=== PATIENT | female | born 1970 | race Caucasian/White ===

== ENCOUNTER 2020-04-09 15:57 | Emergency (ER) | payer BC, SELFPAY ==
[2020-04-09 16:15] VITALS: BP 186/93; PULSE 77; RESP 16; TEMP 36.3; O2SAT 95; BMI 31.9
[2020-04-09 16:17] VITALS: BP 186/93; PULSE 77; RESP 16; TEMP 36.3; O2SAT 95; BMI 31.9
--- NOTE | 2020-04-09 16:20 | HMH.EDUTC ---
[facility] [place] Impression: Elevated blood pressure reading Fatigue Qualifiers: Fatigue type: unspecified Qualified Code(s): R53.83 - Other fatigue Disposition: Home, Self-Care Condition on Discharge: Good Instructions: Essential Hypertension Additional Instructions: Drink plenty of fluids. Take tylenol or ibuprofen for pain. Take the medications as directed. Follow up with your regular doctor. GO TO THE ER FOR ANY WORSENING SYMPTOMS Prescriptions: lisinopriL [Lisinopril 10mg Tab] 10 mg PO DAILY #30 tab Transmission Status: Received by [facility] Referrals: Loan Epstein [Primary Care Provider] - Time of Disposition: 17:34 Medical Decision Making - Medical Records Medical records reviewed: No: I reviewed the patient's medical records. - Elbert Inquiry Pt receiving controlled substance: No Vital Signs: 04/09/20 16:15 04/09/20 16:17 04/09/20 17:29 Temperature 97.4 F L 97.4 F L Temperature Source Tympanic Tympanic Pulse Rate Pulse Rate [Right] 77 77 Respiratory Rate 16 16 Blood Pressure Blood Pressure [Right Arm] 186/93 H 186/93 H 185/81 H Blood Pressure Mean [Right Arm] 124 124 115 Blood Pressure Source Blood Pressure Source [Right Arm] Automatic Cuff Automatic Cuff Automatic Cuff Blood Pressure Position [Right Arm] Sitting Sitting Sitting 02 Sat by Pulse Oximetry 95 95 Oxygen Delivery Method Room Air Room Air 04/09/20 17:40 Temperature 98 F Temperature Source Pulse Rate 77 Pulse Rate [Right] Respiratory Rate 16 Blood Pressure 180/79 H Blood Pressure [Right Arm] Blood Pressure Mean [Right Arm] Blood Pressure Source Automatic Cuff Blood Pressure Source [Right Arm] Blood Pressure Position [Right Arm] 02 Sat by Pulse Oximetry Oxygen Delivery Method - Lab Data Lab Results 04/09/20 16:55: WBC 10.2, RBC 5.10, Hgb 14.8, Hct 43.5, MCV 85.3, MCH 29.0, MCHC 34.0, RDW 13.4, Plt Count 334, MPV 7.3 L, Neut % (Auto) 47.8, Lymph % (Auto) 39.9, [place] % (Auto) 5.4, Eos % (Auto) 5.7, Baso % (Auto) 1.2, Neut # (Auto) 4.9, Lymph # (Auto) 4.1, [place] # (Auto) 0.6, Eos # (Auto) 0.6 H, Baso # (Auto) 0.1 04/09/20 16:55: Sodium 142, Potassium 3.5, Chloride 105, Carbon Dioxide 29, Anion Gap 11.5, BUN 7, Creatinine 0.60, Estimated Creat Clear 131, Estimated GFR 106, Est GFR ( Amer) 128, Glucose 113 H, Calcium 9.8, Total Bilirubin 0.5, AST 55 H, ALT 64, Alkaline Phosphatase 92, Total Protein 9.0 H, Albumin 5.0, Globulin 4.0 H, Albumin/Globulin Ratio 1.3, TSH 3.11 Result diagrams: 04/09/20 16:55 04/09/20 16:55 [facility] [place] General Stated complaint: Blood pressure is high, leg weak, REYNOSO Time Seen by Provider: 04/09/20 16:20 - History of Present Illness Provider Complaint: She states that over the past week or so she has been having headaches more often than her usual pattern. She has been under more stress than her normal. She denies that her headaches are severe, but they do bother her. She denies any chest pain. - Related Data Previous Rx's Medication Instructions Recorded Ondansetron [Zofran 4mg ODT] 4 mg PO TIDP PRN #10 tab.rapdis 05/12/18 Oxycodone HCl/Acetaminophen 1 tab PO Q6HP PRN #10 tab 05/12/18 [Percocet 5/325mg tablet] Tamsulosin HCl [Flomax 0.4mg 0.4 mg PO HS #10 cap.er.24h 05/12/18 capsule] lisinopriL [Lisinopril 10mg Tab] 10 mg PO DAILY #30 tab 04/09/20 Allergies Allergy/AdvReac Type Severity Reaction Status Date / Time No Known Drug Allergies Allergy Unknown Verified 04/09/20 16:00 [NKDA] [facility] History - Hepatitis A Screen Attestation statement:: This patient has been screened for Hepatitis A risk factors. I have reviewed the patient's past medical history: Yes Medical History: Reports:: Hyperlipidemia, Hypertension Other Medical History: Reports: Arthritis Other Surgeries: Yes: Cholecystectomy, Hysterectomy-Total - Social History Smoking Status: Never smoker Alcohol Intake:
--- NOTE | 2020-04-09 16:40 | PC.NURSE ---
FS 238 performed by Capri ESCOBEDO
--- NOTE | 2020-04-09 16:58 | ECG_ITS ---
APPROVED REPORT Exam: Resting ECG HR:68 bpm ECG Measurements Heart Rate 68 AXES SC 134 P 12 QRSd 70 QRS 24 QT 414 T 16 QTc 440 Conclusion Normal sinus rhythm with sinus arrhythmia Low voltage QRS Poor r wave progression Abnormal ECG Electronically signed by : Loi Whitney, 04/10/2020 06:29:35
[2020-04-09 17:08] LABS: Basophils # 0.1 K/mm3 (0-0.2); Basophils % 1.2 % (0.1-2.0); Chloride 105 mmol/L (98-107); Eosinophils # 0.6 K/mm3 (0.0-0.4); Eosinophils % 5.7 % (0.1-12.0); Hematocrit 43.5 % (37.0-47.0); Hemoglobin 14.8 g/dL (12.2-16.2); Lymphocytes # 4.1 K/mm3 (0.7-4.5); Lymphocytes % 39.9 % (10-50); Mean Corpuscular Volume 85.3 fl (81-99); Mean Platelet Volume 7.3 fl (7.4-10.4); Monocytes # 0.6 K/mm3 (0.1-1.0); Monocytes % 5.4 % (1.7-9.3); Neutrophils # 4.9 K/mm3 (1.8-7.8); Neutrophils % 47.8 % (37.0-80.0); Platelet Count 334 K/mm3 (142-424); Potassium 3.5 mmoL/L (3.5-5.1); Red Cell Distribution Width 13.4 % (11.5-17.5); Sodium 142 mmol/L (136-145); White Blood Count 10.2 K/mm3 (4.8-10.8)
[2020-04-09 17:10] LABS: Alanine Aminotransferase 64 U/L (12-78); Aspartate Amino Transferase 55 U/L (14-36); Blood Urea Nitrogen 7 mg/dl (7-17); Creatinine Clearance Estimated 131 mL/min (50-200); Estimated Glomerular Filt Rate 106 ml/min (>60); GFR (African American) 128 ML/MIN (>60)
[2020-04-09 17:11] LABS: Albumin/Globulin Ratio 1.3 (1.1-1.8); Alkaline Phosphatase 92 U/L (38-126); Anion Gap 11.5 mEq/L (5-15); Bilirubin,Total 0.5 mg/dl (0.2-1.3); Calcium 9.8 mg/dl (8.4-10.2); Carbon Dioxide 29 mmol/L (22.0-30.0); Glucose 113 mg/dl (74-100)
[2020-04-09 17:29] VITALS: BP 185/81
[2020-04-09 17:40] VITALS: BP 180/79; PULSE 77; RESP 16; TEMP 36.6
[2020-04-09 17:42] LABS: Thyroid Stimulating Hormone 3.11 uIU/mL (0.465-4.68)
== END 2020-04-09 17:43 | disposition home or self-care (01) ==
PROVIDERS: Emergency Provider Nurse Practitioner Family; PCP Physician Assistant
DX: R03.0 Elevated blood-pressure reading, without diagnosis of hypertension (principal); R53.83 Other fatigue
CPT/HCPCS: 80053; 84443; 85025; 93005; 93041; 99202; G0463

== ENCOUNTER 2020-05-20 12:42 | Emergency (ER) | payer BC, SELFPAY ==
[2020-05-20] VITALS (7 sets, daily range): BP systolic 145–157; BP diastolic 79–97; PULSE 65–95; RESP 13–23; TEMP 37.2; O2SAT 96–99; BMI 31.4
--- NOTE | 2020-05-20 12:36 | ECG_ITS ---
APPROVED REPORT Exam: Resting ECG HR:82 bpm ECG Measurements Heart Rate 82 AXES WI 118 P 19 QRSd 72 QRS 37 QT 364 T 41 QTc 425 Conclusion Normal sinus rhythm Normal ECG Electronically signed by : Loi Whitney, 05/20/2020 21:04:29
--- NOTE | 2020-05-20 12:42 | HMH.EDCP ---
ED Disposition Clinical Impression: Chest pain Qualifiers: Chest pain type: unspecified Qualified Code(s): R07.9 - Chest pain, unspecified Disposition: Home, Self-Care Condition on Discharge: Good Referrals: Jeniffer Patricio [Primary Care Provider] - 3 days Time of Disposition: 15:34 - Critical Care Critical Care Time: No Attestation: On , the high probability of a clinically significant, sudden or life threatening deterioration of the following system(s) required my full and direct attention, intervention and personal management. The time I documented below is in addition to time spent performing reported procedures but includes the following listed in this critical care notation. Medical Decision Making - Medical Records Medical records reviewed: Yes: I reviewed the patient's medical records. - Elbert Inquiry Pt receiving controlled substance: No Vital Signs: 05/20/20 12:42 05/20/20 13:15 05/20/20 13:30 Temperature 99.0 F Temperature Source Oral Pulse Rate 95 H 83 Pulse Rate [Right Brachial] 92 H Respiratory Rate 22 16 23 Blood Pressure 145/84 H 148/97 H Blood Pressure [Right Arm] 145/89 H Blood Pressure Mean 105 Blood Pressure Mean [Right Arm] 107 02 Sat by Pulse Oximetry 97 96 97 Oxygen Delivery Method Room Air 05/20/20 14:00 05/20/20 14:30 05/20/20 15:00 Temperature Temperature Source Pulse Rate 74 67 69 Pulse Rate [Right Brachial] Respiratory Rate 15 13 15 Blood Pressure 148/92 H 157/83 H 146/79 H Blood Pressure [Right Arm] Blood Pressure Mean 115 107 101 Blood Pressure Mean [Right Arm] 02 Sat by Pulse Oximetry 98 99 99 Oxygen Delivery Method - Lab Data Lab Results 05/20/20 12:45: WBC 11.4 H, RBC 5.21, Hgb 14.8, Hct 42.7, MCV 81.9, MCH 28.3, MCHC 34.6, RDW 13.5, Plt Count 374, MPV 7.2 L, Neut % (Auto) 71.1, Lymph % (Auto) 22.0, Cross % (Auto) 4.5, Eos % (Auto) 1.9, Baso % (Auto) 0.5, Neut # (Auto) 8.1 H, Lymph # (Auto) 2.5, Cross # (Auto) 0.5, Eos # (Auto) 0.2, Baso # (Auto) 0.1 05/20/20 12:45: Sodium 143, Potassium 4.0, Chloride 105, Carbon Dioxide 26, Anion Gap 16.0 H, BUN 9, Creatinine 0.70, Estimated GFR 89, Est GFR ( Amer) 107, Glucose 138 H, Calcium 10.5 H, Total Bilirubin 0.6, AST 45 H, ALT 54, Alkaline Phosphatase 90, Troponin I < 0.01, Total Protein 9.1 H, Albumin 5.3 H, Globulin 3.8 H, Albumin/Globulin Ratio 1.4 05/20/20 14:40: Troponin I < 0.01 Result diagrams: 05/20/20 12:45 05/20/20 12:45 Orders (Tests/Meds): ED MEDICATIONS Discontinued Medications Generic Name Dose Route Start Last Admin Trade Name Freq PRN Reason Stop Dose Admin Aspirin 325 mg 05/20/20 12:45 05/20/20 13:12 Aspirin 325mg Tablet PO 05/20/20 12:46 325 mg ONCE ONE Administration Sodium Chloride 1,000 mls @ 999 mls/hr 05/20/20 13:45 05/20/20 13:44 Sod Chlor 0.9% 1000ml Bag IV 05/20/20 14:45 999 mls/hr .Q1H1M DEE Administration Ondansetron HCl 4 mg 05/20/20 13:32 05/20/20 13:44 Ondansetron 4mg/2ml Vial IV 05/20/20 13:33 4 mg ONCE ONE Administration ORDERS Category Date Time Status Troponin I Q3H Lab 05/20/20 18:45 Ordered - ECG Data Tracing #1 Normal sinus rhythm, 82 bpm, no ST elevation or depression, no ectopy, normal intervals. ECG initial impression date: 05/20/20 ECG initial impression time: 12:36 - BLAKE Score for Non-Stemi Age of Patient: 50-59 years old Heart Rate: 90-109 bpm Systolic Blood Pressure: 140-159 mmHg Serum Creatinine: 0.40-0.79 mg/dl CHF Killip Class: I-No CHF Other Risk Factors: None Non-Stemi Risk Score: 84 Medical Decision Narrative: 49yo F evaluated for chest pain. Differential diagnosis includes but not limited to: ACS/NH, pneumonia, PE, GERD, anxiety, angina, cholecystitis, pneumothorax. Patient in no acute distress on initial evaluation. Routine cardiac work-up is initiated. Chest x-ray is unremarkable. EKG is unremarkable as above. Metabolic panel, CBC, tropon
--- NOTE | 2020-05-20 12:43 | XR_ITS ---
PROCEDURE: XR CHEST PORTABLE CLINICAL HISTORY: cp COMPARISON: No exams were available for comparison FINDINGS: The cardiomediastinal silhouette and pulmonary vascularity are within normal limits. The lungs are clear without infiltrates, suspicious nodules, or pleural effusions. There monitor lines overlying the chest. There couple tiny calcified nodes in both hilar regions. No acute bony abnormalities. IMPRESSION: No acute findings. Dictated by: Dr. Medhat Perez MD 05/20/2020 14:10 Dr. Medhat Perez MD in [place] 05/20/2020 14:10
[2020-05-20 13:04] LABS: Basophils # 0.1 K/mm3 (0-0.2); Basophils % 0.5 % (0.1-2.0); Eosinophils # 0.2 K/mm3 (0.0-0.4); Eosinophils % 1.9 % (0.1-12.0); Hematocrit 42.7 % (37.0-47.0); Hemoglobin 14.8 g/dL (12.2-16.2); Lymphocytes # 2.5 K/mm3 (0.7-4.5); Mean Corpuscular HGB Conc 34.6 g/dL (31.8-35.4); Mean Corpuscular Hemoglobin 28.3 pg (27.0-31.2); Mean Corpuscular Volume 81.9 fl (81-99); Mean Platelet Volume 7.2 fl (7.4-10.4); Monocytes # 0.5 K/mm3 (0.1-1.0); Monocytes % 4.5 % (1.7-9.3); Neutrophils # 8.1 K/mm3 (1.8-7.8); Neutrophils % 71.1 % (37.0-80.0); Platelet Count 374 K/mm3 (142-424); Red Blood Count 5.21 M/mm3 (4.20-5.40); Red Cell Distribution Width 13.5 % (11.5-17.5); White Blood Count 11.4 K/mm3 (4.8-10.8)
[2020-05-20 13:05] LABS: Chloride 105 mmol/L (98-107); Sodium 143 mmol/L (136-145)
[2020-05-20 13:07] LABS: Alanine Aminotransferase 54 U/L (12-78); Aspartate Amino Transferase 45 U/L (14-36); Blood Urea Nitrogen 9 mg/dl (7-17); Estimated Glomerular Filt Rate 89 ml/min (>60); GFR (African American) 107 ML/MIN (>60)
[2020-05-20 13:08] LABS: Albumin Level 5.3 g/dl (3.5-5.0); Albumin/Globulin Ratio 1.4 (1.1-1.8); Alkaline Phosphatase 90 U/L (38-126); Bilirubin,Total 0.6 mg/dl (0.2-1.3); Calcium 10.5 mg/dl (8.4-10.2); Carbon Dioxide 26 mmol/L (22.0-30.0); Globulin 3.8 g/dL (1.3-3.2); Glucose 138 mg/dl (74-100); Total Protein,Serum 9.1 g/dl (6.3-8.2)
[2020-05-20 13:24] LABS: Troponin I < 0.01 ng/ml (0.00-0.034)
[2020-05-20 15:16] LABS: Troponin I < 0.01 ng/ml (0.00-0.034)
== END 2020-05-20 15:45 | disposition home or self-care (01) ==
PROVIDERS: Emergency Provider Family Medicine; PCP Internal Medicine
DX: R07.9 Chest pain, unspecified (principal); I10 Essential (primary) hypertension; E78.5 Hyperlipidemia, unspecified; Z79.899 Other long term (current) drug therapy; Z87.891 Personal history of nicotine dependence
CPT/HCPCS: 71045; 80053; 84484; 85025; 93005; 99282; J2405

== ENCOUNTER 2020-05-23 11:12 | Emergency (ER) | payer BC, SELFPAY ==
[2020-05-23 11:12] VITALS: BP 120/82; PULSE 100; RESP 20; TEMP 36.4; O2SAT 98; BMI 31.4
--- NOTE | 2020-05-23 11:17 | XR_ITS ---
PROCEDURE: XR CHEST 2V CLINICAL HISTORY: syncope COMPARISON: CR XR CHEST PORTABLE from 05/20/2020 FINDINGS: The cardiomediastinal silhouette and pulmonary vascularity are within normal limits. The lungs are clear without infiltrates, suspicious nodules, or pleural effusions. No acute bony abnormalities. IMPRESSION: No acute findings. Dictated by: Carol Baca 05/23/2020 14:09 Carol Baca in [facility] 05/23/2020 14:09
--- NOTE | 2020-05-23 11:22 | HMH.EDDIZZ ---
ED Disposition Clinical Impression: Benign positional vertigo Qualifiers: Laterality: unspecified laterality Qualified Code(s): H81.10 - Benign paroxysmal vertigo, unspecified ear Disposition: Home, Self-Care Condition on Discharge: Good Instructions: Vertigo Prescriptions: Meclizine HCl [Meclizine 25mg Tab] 25 mg PO Q4-6H PRN #25 tab PRN Reason: Dizziness Transmission Status: Received by [id number] Referrals: Jeniffer Patricio [Primary Care Provider] - - Critical Care Critical Care Time: No Attestation: On 05/23/20, the high probability of a clinically significant, sudden or life threatening deterioration of the following system(s) required my full and direct attention, intervention and personal management. The time I documented below is in addition to time spent performing reported procedures but includes the following listed in this critical care notation. Medical Decision Making - Elbert Inquiry Pt receiving controlled substance: No Vital Signs: 05/23/20 11:12 05/23/20 11:31 Temperature 97.6 F Temperature Source Oral Pulse Rate [Left Radial] 100 H Pulse Rate [Orthostatic Lying Left Radial] 97 H Pulse Rate [Orthostatic Standing Left Radial] 99 H Respiratory Rate 20 Blood Pressure [Orthostatic Lying Right Arm] 115/73 Blood Pressure [Orthostatic Standing Right Arm] 125/73 Blood Pressure [Right Arm] 120/82 Blood Pressure Mean [Right Arm] 94 Blood Pressure Source [Right Arm] Automatic Cuff Blood Pressure Position [Right Arm] Sitting 02 Sat by Pulse Oximetry 98 Oxygen Delivery Method Room Air - Lab Data Lab Results 05/23/20 11:00: WBC 16.9 H D, RBC 5.46 H, Hgb 15.7, Hct 44.7, MCV 81.8, MCH 28.8, MCHC 35.2, RDW 13.6, Plt Count 511 H D, MPV 7.6, Neut % (Auto) 64.5, Lymph % (Auto) 27.9, [place] % (Auto) 5.4, Eos % (Auto) 1.5, Baso % (Auto) 0.7, Neut # (Auto) 10.9 H, Lymph # (Auto) 4.7 H, [place] # (Auto) 0.9, Eos # (Auto) 0.3, Baso # (Auto) 0.1, Total Counted 100, Neutrophils % (Manual) 83 H, Band Neutrophils % 1.0, Lymphocytes % (Manual) 13, Monocytes % (Manual) 3, Platelet Estimate Normal, RBC Morphology Normal 05/23/20 11:00: Sodium 139, Potassium 3.8, Chloride 98, Carbon Dioxide 24, Anion Gap 20.8 H, BUN 24 H D, Creatinine 1.60 H D, Estimated Creat Clear 48, Estimated GFR 34 L, Est GFR ( Amer) 41 L D, Glucose 131 H, Calcium 10.5 H, Total Bilirubin 0.8, AST 45 H, ALT 49, Alkaline Phosphatase 113, Total Protein 9.7 H, Albumin 5.6 H, Globulin 4.1 H, Albumin/Globulin Ratio 1.4 Result diagrams: 05/23/20 11:00 05/23/20 11:00 Orders (Tests/Meds): ED MEDICATIONS Discontinued Medications Generic Name Dose Route Start Last Admin Trade Name Freq PRN Reason Stop Dose Admin Meclizine HCl 25 mg 05/23/20 11:45 05/23/20 11:36 Meclizine 25mg Tablet PO 05/23/20 11:46 25 mg ONCE ONE Administration ORDERS Category Date Time Status XR chest 2V Stat Exams 05/23/20 11:17 Taken - ECG Data Tracing #1 EKG done at 11:24 AM on May 23 shows a sinus rhythm with a heart rate of 93 with no acute ischemic changes. Patient has some T wave inversions in aVR and V2. This EKG was compared to an EKG obtained on 05/20/2020 and I see no significant changes Normal Sinus Rhythm: Yes - Reevaluation(s) Time: 13:45 (The patient symptoms have resolved completely after meclizine. The patient feels well. She ambulated in the emergency department without any difficulty.) Medical Decision Narrative: The patient presented to the emergency department complaining of dizziness. She describes the dizziness as a near syncopal episode. However, in the emergency department the patient was sitting positional symptoms consistent with benign positional vertigo. The patient's neurologic exam was nonfocal. There is no evidence of stroke. The patient's voice was normal. She had no difficulty swallowing. Therefore, no central nervous imaging was performed. The patient was given meclizine
--- NOTE | 2020-05-23 11:24 | ECG_ITS ---
APPROVED REPORT Exam: Resting ECG HR:93 bpm ECG Measurements Heart Rate 93 AXES AK 124 P 14 QRSd 70 QRS 16 QT 366 T 20 QTc 455 Conclusion Normal sinus rhythm Nonspecific T wave abnormality Abnormal ECG Electronically signed by : Loi Whitney, 05/24/2020 13:22:20
[2020-05-23 11:31] VITALS: BP 115/73; BP 125/73; PULSE 97; PULSE 99
[2020-05-23 11:40] LABS: Basophils # 0.1 K/mm3 (0-0.2); Basophils % 0.7 % (0.1-2.0); Eosinophils # 0.3 K/mm3 (0.0-0.4); Eosinophils % 1.5 % (0.1-12.0); Hematocrit 44.7 % (37.0-47.0); Hemoglobin 15.7 g/dL (12.2-16.2); Lymphocytes # 4.7 K/mm3 (0.7-4.5); Lymphocytes % 27.9 % (10-50); Mean Corpuscular HGB Conc 35.2 g/dL (31.8-35.4); Mean Corpuscular Hemoglobin 28.8 pg (27.0-31.2); Mean Corpuscular Volume 81.8 fl (81-99); Mean Platelet Volume 7.6 fl (7.4-10.4); Monocytes # 0.9 K/mm3 (0.1-1.0); Monocytes % 5.4 % (1.7-9.3); Neutrophils # 10.9 K/mm3 (1.8-7.8); Neutrophils % 64.5 % (37.0-80.0); Platelet Count 511 K/mm3 (142-424); Red Blood Count 5.46 M/mm3 (4.20-5.40); Red Cell Distribution Width 13.6 % (11.5-17.5); White Blood Count 16.9 K/mm3 (4.8-10.8)
[2020-05-23 11:41] LABS: MANUAL DIFFERENTIAL MANUAL DIFFERENTIAL (MANUAL DIFF)
--- NOTE | 2020-05-23 11:45 | PC.NURSE ---
Pt to rad.
[2020-05-23 11:47] LABS: Alanine Aminotransferase 49 U/L (12-78); Albumin Level 5.6 g/dl (3.5-5.0); Albumin/Globulin Ratio 1.4 (1.1-1.8); Alkaline Phosphatase 113 U/L (38-126); Anion Gap 20.8 mEq/L (5-15); Aspartate Amino Transferase 45 U/L (14-36); Bilirubin,Total 0.8 mg/dl (0.2-1.3); Blood Urea Nitrogen 24 mg/dl (7-17); Calcium 10.5 mg/dl (8.4-10.2); Carbon Dioxide 24 mmol/L (22.0-30.0); Chloride 98 mmol/L (98-107); Creatinine Clearance Estimated 48 mL/min (50-200); Estimated Glomerular Filt Rate 34 ml/min (>60); GFR (African American) 41 ML/MIN (>60); Globulin 4.1 g/dL (1.3-3.2); Glucose 131 mg/dl (74-100); Potassium 3.8 mmoL/L (3.5-5.1); Sodium 139 mmol/L (136-145); Total Protein,Serum 9.7 g/dl (6.3-8.2)
[2020-05-23 11:56] LABS: Lymphocytes % 13 % (10-50); Monocytes % 3 % (2-9); Neutrophils % 83 % (42-76); Platelet Estimate Normal; RBC Morphology Normal; Total Cells Counted 100
--- NOTE | 2020-05-23 13:50 | PC.NURSE ---
Pt stood up and bent over, denies any issues or dizzines/nausea at this time. aware
[2020-05-23 14:08] VITALS: BP 114/70; PULSE 104; RESP 12; TEMP 36.4; O2SAT 100
== END 2020-05-23 14:09 | disposition home or self-care (01) ==
PROVIDERS: Emergency Provider Emergency Medicine; PCP Internal Medicine
DX: H81.10 Benign paroxysmal vertigo, unspecified ear (principal); I10 Essential (primary) hypertension; E78.5 Hyperlipidemia, unspecified; Z79.899 Other long term (current) drug therapy
CPT/HCPCS: 71046; 80053; 85007; 85025; 93005; 99282

== ENCOUNTER 2020-08-31 14:31 | Emergency (ER) | payer BC, SELFPAY ==
[2020-08-31 14:35] VITALS: BP 146/70; PULSE 73; RESP 14; TEMP 36.6; O2SAT 98; BMI 31.6
[2020-08-31 15:27] VITALS: BP 140/79; PULSE 71; RESP 16; TEMP 36.6
--- NOTE | 2020-08-31 15:42 | HMH.EDUTC ---
[facility] [place] Clinical Impression: Otitis media Qualifiers: Otitis media type: suppurative Chronicity: acute Laterality: bilateral Recurrence: non-recurrent Spontaneous tympanic membrane rupture: without spontaneous rupture Qualified Code(s): H66.003 - Acute suppurative otitis media without spontaneous rupture of ear drum, bilateral Disposition: Home, Self-Care Condition on Discharge: Good Instructions: Middle Ear Infection Additional Instructions: Drink plenty of fluids. Take tylenol or ibuprofen for pain or fever. Take the medications as directed. Follow up with your regular doctor. GO TO THE ER FOR ANY WORSENING SYMPTOMS Prescriptions: Amoxicillin/Potassium Clav [Augmentin 875-125 Tablet] 1 tab PO Q12H 10 Days #20 tab Transmission Status: Received by [employer] [facility] Ciprofloxacin HCl/Dexameth [Cipro 0.3%-Dex 0.1% Otic Susp 7.5mL] 2 drops EAR-LEFT BID 7 Days #1 bottle Transmission Status: Received by [employer] [facility] methylPREDNISolone [Medrol] 4 mg PO DIRECTED 6 Days #21 tab.[email or web address] Transmission Status: Received by [employer] [facility] Referrals: Magnolia Garcia APRN [Primary Care Provider] - Forms: Work/School Release Time of Disposition: 15:45 Medical Decision Making - Medical Records Medical records reviewed: No: I reviewed the patient's medical records. - Elbert Inquiry Pt receiving controlled substance: No Vital Signs: 08/31/20 14:35 08/31/20 15:27 Temperature 98 F 98 F Temperature Source Oral Pulse Rate 71 Pulse Rate [Left] 73 Respiratory Rate 14 16 Blood Pressure 140/79 Blood Pressure [Right Arm] 146/70 H Blood Pressure Mean [Right Arm] 95 02 Sat by Pulse Oximetry 98 Oxygen Delivery Method Room Air Orders (Tests/Meds): ED MEDICATIONS Discontinued Medications Generic Name Dose Route Start Last Admin Trade Name Freq PRN Reason Stop Dose Admin Ceftriaxone Sodium 1 gm 08/31/20 15:12 08/31/20 15:27 Ceftriaxone 1gm Vial IM 08/31/20 15:13 1 gm ONCE ONE Administration Protocol Lidocaine HCl 0 ml 08/31/20 15:12 08/31/20 15:26 Lidocaine 1% 5ml Pf Vial IM 08/31/20 15:13 2.5 ml ONCE ONE Administration Methylprednisolone Sodium Succinate 125 mg 08/31/20 15:12 08/31/20 15:26 Methylprednisolone Sod Succ 125mg Vial IM 08/31/20 15:13 125 mg ONCE ONE Administration [facility] [place] - General Stated complaint: earaches Time Seen by Provider: 08/31/20 14:45 Mode of Arrival: Ambulatory Source of Information: Patient Limitations: No Limitations Description of Symptoms (Recalled from Triage Doc. by RN): L ear ache HEENT Symptoms (Recalled from RN notes): Yes (L ear ache) Resp Symptoms (Recalled from RN notes): No Skin Symptoms (Recalled from RN notes): No MS Symptoms (Recalled from RN notes): No Functional Status (Recalled from RN notes): na - History of Present Illness Provider Complaint: She c/o left ear pain and sinus congestion for the past 2 days. - Related Data Home Medications Medication Instructions Recorded Confirmed Buspirone HCl [Buspar 10mg 5 mg PO BID 05/20/20 05/20/20 tablet] Loratadine [Claritin] 10 mg PO DAILY 05/20/20 05/20/20 Triamterene/Hydrochlorothiazid 1 tab PO DAILY 05/20/20 05/20/20 [Triamterene-Hctz 75-50 mg Tab] Previous Rx's Medication Instructions Recorded Meclizine HCl [Meclizine 25mg Tab] 25 mg PO Q4-6H PRN #25 tab 05/23/20 Amoxicillin/Potassium Clav 1 tab PO Q12H 10 Days #20 tab 08/31/20 [Augmentin 875-125 Tablet] Ciprofloxacin HCl/Dexameth [Cipro 2 drops EAR-LEFT BID 7 Days #1 08/31/20 0.3%-Dex 0.1% Otic Susp 7.5mL] bottle methylPREDNISolone [Medrol] 4 mg PO DIRECTED 6 Days #21 08/31/20 tab.[email or web address] Allergies Allergy/AdvReac Type Severity Reaction Status Date / Time No Known Drug Allergies Allergy Unknown Verified 04/09/20 16:00 [NKDA] - Worker's Comp Is this a Worker's Comp case?: No [facility] History - Hepatitis A Screen Drug u
== END 2020-08-31 15:49 | disposition home or self-care (01) ==
PROVIDERS: Emergency Provider Nurse Practitioner Family; PCP Nurse Practitioner Family
DX: H66.003 Acute suppurative otitis media without spontaneous rupture of ear drum, bilateral (principal)
CPT/HCPCS: 96372; 99202; G0463